=== PATIENT | female | born 1965 | race Caucasian/White ===

== ENCOUNTER 2017-07-15 10:49 | Emergency (ER) | payer OTHER, SELFPAY ==
[2017-07-15 10:50] VITALS: BP 167/101; PULSE 102; RESP 16; TEMP 36.7; O2SAT 99; BMI 39.5
--- NOTE | 2017-07-15 11:15 | EKG12_ITS ---
Test Reason : CP Blood Pressure : / mmHG Vent. Rate : 101 BPM Atrial Rate : 101 BPM P-R Int : 162 ms QRS Dur : 082 ms QT Int : 346 ms P-R-T Axes : 050 006 043 degrees QTc Int : 448 ms Sinus tachycardia Otherwise normal ECG Confirmed by SHERIE MCNAMARA ([id number]), food expeditor GIOVANNI KWAN ([id number]) on 07/19/2017 1:11:50 PM Referred By: KARLOS Confirmed By:SHERIE MCNAMARA
--- NOTE | 2017-07-15 11:18 | ED.DCSUM_ITS ---
- ER Visit Summary Date of Service: 07/15/17 Chief Complaint: Chest pain History of Present Illness: The patient is a 51 F who states that beginning last night she has had several intermittent episodes of chest tightness. She states it lasts seconds. She has no other associated symptoms. She has a history of hypertension and takes lisinopril for that. No personal history of hypercholesterolemia or diabetes. She is a non-smoker. There is no familial history of early cardiac disease. No PE risk factors and no familial history of thoracic aortic disease. Physical Examination: Afebrile 167/102 heart rate of 1 2 respirations are 16 pulse ox is 99% on room air Gen: Well-nourished well-developed obese Head: Normocephalic atraumatic Eyes: Perrl EOMI ENT: TMs clear no rhinorrhea moist mucous membranes Neck: Supple no lymphadenopathy no JVD nontender CVS: Regular rate rhythm no murmurs normal S1-S2 Respiratory: No distress clear to auscultation bilaterally chest nontender Abdomen: Soft nontender nondistended normal bowel sounds no masses Back: Nontender Extremity: Nontender no edema Skin: Normal color no rash Neuro: alert orientated ?3 CN II-XII intact normal strength sensation reflexes gait cerebellar Psych: Normal affect normal mood Test Results: There is tachycardia at a rate of 101. EDC is normal. BMP shows a glucose of 257. Troponin less than 0.02. Chest x-ray showed no acute disease. Emergency Department Course and Treatment: The patient's JEB score is 0 and her heart score is 2. Evaluation can be done as an outpatient based on his criteria. Patient was advised that her blood sugar was elevated and she will need further evaluation of that. She will be referred back to her primary care doctor. Impression: 1. Chest pain 2. Hyperglycemia This note was generated with [employer] dictation software. It may contain incorrect words, spelling, and punctuation that were not noted in review of the chart prior to signing ED Disposition - Plan for ED Patient: Disposition: Home or Assisted Living Chief Complaint: Chest Pain Instructions: ED Chest Pain Atypical Unkn Cause Referrals: Anand Rodgers [Primary Care Provider] - (Call today to arrange early follow-up) Additional Instructions: Blood sugar today was 257. You must follow-up with your primary care for further evaluation of this. Please also discuss your chest pain with them. Return if worsening.
--- NOTE | 2017-07-15 11:25 | RAD_ITS ---
STUDY: X-RAY CHEST REASON FOR EXAM: Female, 51 years old. Chest pain. TECHNIQUE: PA and lateral views of the chest. COMPARISON: None. FINDINGS: EKG electrodes are seen. The lungs are clear and expanded. There is no demonstrated pleural abnormality. Normal size heart. Normal mediastinum and darwin. Normal visualized pulmonary arteries. Normal visualized aortic arch and descending thoracic aorta. Normal visualized thoracic spine. Normal visualized ribs, clavicles, and shoulders. There is no demonstrated abnormality of the visualized soft tissue structures of the upper abdomen. RAD/Chest PA and Lateral IMPRESSION: Normal x-ray examination of the chest. Electronically Signed: Pako Ferro MD at 12:29 EST Tel [phone], Service support ,
[2017-07-15] MEDS: Aspirin 81 MG TAB.CHEW 324 MG PO (11:27)
[2017-07-15 11:29] VITALS: BP 159/87; PULSE 98; RESP 16; O2SAT 97
[2017-07-15 11:29] LABS: Absolute Lymphocyte Count 2.04 X10^3/ul (0.83-4.51); Absolute Neutrophil Count 5.2 X10^3/uL (2.0-7.7); Basophil# 0.02 X10^3/uL; Basophil% 0.2 % (0-1); Eosinophil# 0.32 X10^3/uL; Hematocrit 39.1 % (37-47); Hemoglobin 13.2 g/dl (12.0-15.0); Lymphocyte # 2.04 X10^3/ul (4.0); Lymphocyte % 25.2 % (19-41); Mean Corp Hgb Conc 33.8 g/gl (32-36); Mean Corpuscular Hgb 29.5 pg (27.0-32.0); Mean Corpuscular Volume 87.3 fL (81-99); Mean Platelet Vol. 8.4 fl (6.2-12.0); Monocyte# 0.49 X10^3/uL; Monocyte% 6.1 % (0-10); Neutrophil % 64.4 % (47-70); Platelet Count 325 K/mm3 (150-450); RBC Distribution Width CV 12.7 % (11.6-14.6); RBC Distribution Width SD 39.8 fl (35.1-43.9); Red Blood Count 4.48 M/mm3 (4.2-5.4); White Blood Count 8.1 K/mm3 (4.4-11.0)
[2017-07-15 11:41] LABS: Anion Gap 8 (5-15); BUN 12 mg/dL (7-18); BUN/Creat Ratio 13.5 RATIO (10-20); Calcium,Total 8.6 mg/dL (8.5-10.1); Chloride 101 mmol/L (98-107); Creatinine, Serum 0.89 mg/dL (0.55-1.02); EST Glomerular Filtration Rate 71 mL/min (>60); Est Glom Filt Rate - Afr Amer 86 mL/min (>60); Estimated Creatinine Clearance 58.48 ml/min; Glucose 257 mg/dL (74-106); Potassium 3.9 mmol/L (3.5-5.1); Sodium Level 138 mmol/L (136-145)
[2017-07-15 11:45] LABS: POSITIVE COUNT NO; POSITIVE DIFFERENTIAL NO; POSITIVE MORPHOLOGY NO
[2017-07-15 12:13] VITALS: BP 137/81; PULSE 65; RESP 16; O2SAT 100
[2017-07-15 12:17] VITALS: BP 137/81; PULSE 65; RESP 16; O2SAT 100
== END 2017-07-15 12:23 | disposition home or self-care (01) ==
PROVIDERS: Emergency Provider Emergency Medicine
DX: R07.9 Chest pain, unspecified (principal); R73.9 Hyperglycemia, unspecified; I10 Essential (primary) hypertension; Z79.899 Other long term (current) drug therapy; E66.9 Obesity, unspecified
CPT/HCPCS: 71046; 80048; 84484; 85025; 93005; 99285; A4216

== ENCOUNTER 2018-03-18 16:04 | Emergency (ER) | payer OTHER, SELFPAY ==
[2018-03-18 16:05] VITALS: BP 161/96; PULSE 125; RESP 17; TEMP 37.8; O2SAT 94; BMI 38.7
--- NOTE | 2018-03-18 16:21 | CT_ITS ---
STUDY: CT CHEST WITH CONTRAST REASON FOR EXAM: Female, 52 years old. Right axillary mass x2 days, history of lymphoma RADIATION DOSAGE (If Supplied By Facility): CTDIvol = ( 17.86 ) mGy, DLP = ( 873.63 ) mGycm TECHNIQUE: Transaxial imaging was performed following intravenous administration of 100 ml of Isovue 300 contrast material. Individualized dose optimization techniques were used for this CT. COMPARISON: None. FINDINGS: The lungs are normal. There is minimal pleural nodularity bilaterally. Normal heart and pericardium. Normal mediastinum. Normal hilar regions. Normal enhanced pulmonary arteries. Normal aorta arch and descending thoracic aorta. There is mild diffuse endplate spondylosis of the visualized thoracolumbar spine. There are multiple enlarged right axillary nodes measuring up to 2.9 x 2.2 cm. There is no significant abnormality of the visualized upper abdomen. CT/Chest WITH Contrast IMPRESSION: Right axillary adenopathy. There is minimal pleural nodularity bilaterally. Electronically Signed: Geo Boyle MD at 18:31 EDT , Service support ,
--- NOTE | 2018-03-18 16:27 | ED.DCSUM_ITS ---
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 She was seen by her automotive parts manager in follow-up on February 15 and had a normal exam. Patient noted a small abscess-like lesion to her right forearm a couple weeks ago. It has not greatly changed in size. She noted a painful lump to her right axilla over the past couple days it seems to be enlarging. Patient has not noted fever or chills. She states she has felt somewhat fatigued. Physical Examination: Blood pressure is 161/96, temperature 100.1, heart rate 125, respiratory rate 17, pulse ox 94% on room air. Patient sitting in a bedside chair reading a book. She is in no acute distress. Head neck examination is normal. Heart is slightly tachycardic and regular. Lung sounds are clear. Abdomen is soft and nontender. Skin examination was a small, 1 similar diameter cutaneous lesion on her right forearm. There is no fluctuance and no cellulitis. There is a large tender mass deep in the right axilla measuring approximately 6 cm in diameter without overlying skin changes. She has full range of motion of the right upper extremity with strong distal pulses. Test Results: CBC reveals a white count of 11.7 with unremarkable differential. Chemistry studies significant for glucose of 197 and a creatinine 1.35. CRP is elevated at 87.8. Sed rate is 26. CT the chest with IV contrast reveals right axillary adenopathy. There are multiple enlarged right axillary lymph nodes measuring up to 2.9 x 2.2 cm. Emergency Department Course and Treatment: Test results were discussed with the patient. I spoke with dermatology at . They asked that I take pictures of her lesions and email them. Patient did sign consent for this. I also asked the patient be started on antibiotics to cover for staph infection and they wish to see the patient in the office on Tuesday or Tuesday. Patient is to call on Tuesday morning to schedule a time for this. Patient is given initial dose of Bactrim and Keflex here with prescriptions for the same. Treatment Plan: [] Disposition: Discharge Impression: Right axillary adenopathy with history of cutaneous lymphoma. This note was generated with [employer] software. It may contain incorrect words, spelling, and punctuation that were not noted in review of the chart prior to signing ED Disposition - Plan for ED Patient: Disposition: Home or Assisted Living Chief Complaint: Other, Pain/Inj Prescriptions: Cephalexin [Keflex] 500 mg PO Q6 #40 capsule Smz/Tmp Ds [Bactrim Ds] 1 tablet PO BID #20 tablet Additional Instructions: Follow-up with Dr Estrella this week. Call on Tuesday to arrange an appointment for Tuesday or Tuesday.
[2018-03-18] MEDS: 0.9% Normal Saline 1,000 ML 150 ML IV (16:39)
[2018-03-18 16:48] LABS: Absolute Lymphocyte Count 3.27 X10^3/ul (0.83-4.51); Absolute Neutrophil Count 6.7 X10^3/uL (2.0-7.7); Basophil# 0.05 X10^3/uL; Basophil% 0.4 % (0-1); Eosinophil# 1.19 X10^3/uL; Eosinophils% 10.2 % (0-5); Hemoglobin 13.7 g/dl (12.0-15.0); Lymphocyte # 3.27 X10^3/ul (4.0); Lymphocyte % 27.9 % (19-41); Mean Corp Hgb Conc 32.6 g/gl (32-36); Mean Corpuscular Hgb 29.1 pg (27.0-32.0); Mean Corpuscular Volume 89.2 fL (81-99); Mean Platelet Vol. 8.9 fl (6.2-12.0); Monocyte# 0.53 X10^3/uL; Monocyte% 4.5 % (0-10); Neutrophil # 6.66 X10^3/uL (2.7-7.7); Neutrophil % 56.9 % (47-70); Platelet Count 200 K/mm3 (150-450); RBC Distribution Width CV 12.6 % (11.6-14.6); RBC Distribution Width SD 40.4 fl (35.1-43.9); Red Blood Count 4.71 M/mm3 (4.2-5.4); White Blood Count 11.7 K/mm3 (4.4-11.0)
[2018-03-18 16:49] LABS: POSITIVE COUNT NO; POSITIVE DIFFERENTIAL NO; POSITIVE MORPHOLOGY NO
[2018-03-18 17:03] LABS: Anion Gap 9 (5-15); BUN 15 mg/dL (7-18); BUN/Creat Ratio 11.1 RATIO (10-20); Calcium,Total 8.7 mg/dL (8.5-10.1); Chloride 100 mmol/L (98-107); Creatinine, Serum 1.35 mg/dL (0.55-1.02); EST Glomerular Filtration Rate 44 mL/min (>60); Est Glom Filt Rate - Afr Amer 53 mL/min (>60); Estimated Creatinine Clearance 38.12 ml/min; Glucose 197 mg/dL (74-106); Potassium 4.2 mmol/L (3.5-5.1); Sodium Level 137 mmol/L (136-145)
[2018-03-18 17:11] LABS: Erythrocyte Sedimentation Rate 26 mm/hr (0-30)
[2018-03-18 18:15] VITALS: BP 142/77; PULSE 108; RESP 16; O2SAT 100
--- NOTE | 2018-03-18 19:50 | ED.DEP ---
ED Disposition - Plan for ED Patient: Disposition: Home or Assisted Living Chief Complaint: Other, Pain/Inj Prescriptions: Cephalexin [Keflex] 500 mg PO Q6 #40 capsule Smz/Tmp Ds [Bactrim Ds] 1 tablet PO BID #20 tablet Additional Instructions: Follow-up with Dr Estrella this week. Call on Tuesday to arrange an appointment for Tuesday or Tuesday.
[2018-03-18] MEDS: Cephalexin 250 MG Capsule 500 MG PO (20:00)
[2018-03-18] MEDS: Smz/Tmp Ds Tablet 1 TABLET PO (20:00)
[2018-03-18 20:02] VITALS: BP 139/75; PULSE 107; RESP 16; O2SAT 95
== END 2018-03-18 20:03 | disposition home or self-care (01) ==
PROVIDERS: Emergency Provider Emergency Medicine
DX: R59.9 Enlarged lymph nodes, unspecified (principal); Z85.72 Personal history of non-Hodgkin lymphomas; Z92.3 Personal history of irradiation; I10 Essential (primary) hypertension
CPT/HCPCS: 71260; 80048; 85025; 85652; 86140; 96360; 96361; 99284; J7030; Q9967; A4216

== ENCOUNTER → 2018-04-29 10:41 | Outpatient (CLI) | payer OTHER, SELFPAY ==
[2018-05-05 04:54] LABS: Rapid Plasmin Reagin (RPR) NONREACTIVE (NONREACTIVE)
== END ==
DX: R21 Rash and other nonspecific skin eruption (principal)
CPT/HCPCS: 36415; 86592

== ENCOUNTER 2019-03-27 11:13 | Emergency (ER) | payer OTHER, SELFPAY ==
[2019-03-27 11:14] VITALS: BP 155/83; PULSE 108; RESP 18; TEMP 36.6; O2SAT 98; BMI 38.4
--- NOTE | 2019-03-27 11:39 | RAD_ITS ---
STUDY: X-RAY - RIGHT KNEE REASON FOR EXAM: Female, 53 years old. Fall, knee pain TECHNIQUE: 2 view(s) of the knee. COMPARISON: None. FINDINGS: Normal visualized distal femur. Normal visualized proximal tibia and fibula. Normal proximal tibiofibular articulation. Status post anterior cruciate ligament reconstruction. There is moderate degenerative arthrosis of the medial femorotibial compartment with moderate joint space narrowing. There is moderate degenerative arthrosis of the lateral femorotibial compartment with moderate joint space narrowing. There is moderate degenerative arthrosis of the patellofemoral articulation. The soft tissue structures are unremarkable. RAD/Knee 1 or 2 Views IMPRESSION: 1. No acute fracture or dislocation. 2. Status post anterior cruciate ligament reconstruction. 3. Moderate arthrosis. Electronically Signed: Alex Vasquez MD at 12:51 EST Tel , Service support ,
--- NOTE | 2019-03-27 11:40 | ED.DCSUM_ITS ---
History of Present Illness Chief Complaint: Lower Extremity Injury Informant: Patient Onset: Yesterday Mechanism/Context: Fall Quality of Pain: Dull, Aching Location: Right knee Current Severity: Mild Maximum Severity: Moderate Worsened by: Flexion and weightbearing Relieved by: Nothing Associated Symptoms: Inability to ambulate - Difficulty ambulating. Negative for: Parasthesias, Weakness, Loss of function, Loss of consciousness, Amnesia Narrative: She is a middle-age woman on a letter yesterday. The latter fell to the right. She states she landed on her right side. She states she felt her knee wobbled out of position. She has difficulty bearing weight. She had an ACL injury and repair 1993. She denies head trauma. She denies neck pain. She denies paresthesia, anesthesia motor is presently the time of the impact. She denied blood in her urine. She is on no anticoagulant. She states her knee feels full and there is fullness behind her knee. Tetanus Immunization: Unknown Prior similar symptoms: Yes Recent Illness/Hospitalization: No - Past Medical History (1) History of hypertension Status: Acute Past Medical History - Allergies and Home Meds Allergies/Adverse Reactions: Allergies Sulfa (Sulfonamide Antibiotics) Allergy (Verified 03/27/19 11:29) Lesly Primary Care Physician: Anand Rodgers [Primary Care Provider] - Surgical History: - - ACL repair 1993 Lives: Alone Smoking Status: Never smoker Alcohol: Rare Drugs: None Review of Systems Cardiovascular: Denies: Chest pain Respiratory: Denies: Dyspnea Gastrointestinal: Denies: Abdominal pain, Nausea, Vomiting Genitourinary: Denies: Hematuria Musculoskeletal: Reports: Swelling, Extremity Pain, - - Pain and swelling right knee. Denies: Myalgias, Arthralgias, Neck pain, Back pain Skin: Denies: Rash, Wounds Neurological: Denies: Headache, Weakness, Parasthesia, Numbness, -, - Hematologic: Denies: Easy bruising, Easy bleeding Physical Exam Vital Signs/Narrative: Vital Signs Temp Pulse Resp BP Pulse Ox 03/27/19 11:14 98 F 108 H 18 155/83 H 98 Inital Vital Signs reviewed: Yes General: Well nourished, Well developed, Obese Head: Normocephalic, Atraumatic Eyes: Perrl, EOMI. Negative for: Pale conjunctiva, Scleral icterus Cardiovascular: Regular rate, Regular rhythm, No murmurs Respiratory: No distress Extremeties: Patient is able to extend to approximately 170 degrees and flex only to 150 degrees. She complains of pain. The right knee is sniffily swollen. There is a well-healed midline incision noted. There is a significant effusion of the right knee. There is no lacks with varus valgus stress testing. Unable to perform Symone's test or modified Mehdi because of limited range of motion secondary to pain. There is fullness in the popliteal fossa. DP and PT pulses are palpable. There is no pain the patient over the lateral or medial malleolus. There is no pain with logrolling in the hip region. The pelvis is stable and nontender. Skin: Normal color, No rash, No Trauma. Negative for: Cyanosis, Diaphoresis, Jaundice Diagnostic/Tx/Re-eval Chest X-Ray - ED: Read by ED Physician, - - 3 views of the right knee were obtained. There is significant degenerative changes. There is evidence of repair of prior ACL injury. There is an effusion. There is no fracture noted. 03/27/19 11:39 Knee 1 or 2 Views [RAD] Stat - Medical Decision Making Tray was obtained to evaluate for fracture versus ligamentous injury. Patient was offered pain medicine, which she declined. ED Disposition - Plan for ED Patient: Disposition: Home or Assisted Living Diagnosis: Traumatic joint effusion Instructions: KNEE PAIN, Meniscus Injury (Possible) Prescriptions: Oxycodone HCl/Acetaminophen [Percocet 5/325] 1 tablet PO Q6H PRN PRN 5 Days #20 tablet PRN Reason: Knee pain Transmission Status: Sent to [facility] Referrals: Anand Rodgers [Primary Care Provider] - 3-5 Days Additional Instructions: Your prescription was electronically transmitted to [facility]
[2019-03-27 12:41] VITALS: PULSE 96; RESP 16; O2SAT 100
--- NOTE | 2019-03-27 12:41 | ED.RN ---
REVIEWED D/C INSTRUCTIONS, FOLLOW UP CARE, PRESCRIPTION, AND S/S THAT WOULD WARRANT A RETURN TO THE ED WITH PT. PT VERBALIZED AN UNDERSTANDING AND DENIES FURTHER QUESTIONS FOR THIS RN. PT SKIN WARM AND DRY, RESP EVEN AND UNLABORED, PT A&O X 3, NO DISTRESS NOTED. PT AMBULATED OUT OF ED USING PERSONAL CRUTCHES, GAIT STEADY.
== END 2019-03-27 12:42 | disposition home or self-care (01) ==
PROVIDERS: Emergency Provider Emergency Medicine
DX: M25.461 Effusion, right knee (principal); I10 Essential (primary) hypertension; M17.11 Unilateral primary osteoarthritis, right knee; Z88.2 Allergy status to sulfonamides
CPT/HCPCS: 73560; 99282

== ENCOUNTER → 2019-06-04 11:48 | Outpatient (CLI) | payer OTHER, SELFPAY ==
[2019-05-28 09:50] VITALS: BMI 38.4
[2019-06-04 12:42] LABS: Absolute Lymphocyte Count 2.82 X10^3/uL (0.83-4.51); Absolute Neutrophil Count 9.2 X10^3/uL (2.0-7.7); Basophil# 0.04 X10^3/uL; Basophil% 0.3 % (0-1); Eosinophil# 0.29 X10^3/uL; Eosinophils% 2.2 % (0-5); Hematocrit 42.8 % (37-47); Hemoglobin 14.1 g/dL (12.0-15.0); Lymphocyte # 2.82 X10^3/ul (4.0); Lymphocyte % 21.5 % (19-41); Mean Corp Hgb Conc 32.9 g/dL (32-36); Mean Corpuscular Hgb 28.7 pg (27.0-32.0); Mean Platelet Vol. 8.6 fl (6.2-12.0); Monocyte% 5.3 % (0-10); NRBC Flagged by Analyzer 0 % (0-5); Neutrophil # 9.19 X10^3/uL (2.7-7.7); Neutrophil % 70.3 % (47-70); Platelet Count 334 K/mm3 (150-450); RBC Distribution Width CV 12.3 % (11.6-14.6); RBC Distribution Width SD 39.1 fl (35.1-43.9); Red Blood Count 4.92 M/mm3 (4.2-5.4); White Blood Count 13.1 K/mm3 (4.4-11.0)
[2019-06-04 13:05] LABS: ALB/GLOB Ratio 0.9 RATIO (0.9-2.4); AST(SGOT) 11 U/L (15-37); Alanine Aminotransfer ALT/SGPT 23 U/L (13-56); Albumin, Serum 3.8 g/dL (3.2-5.0); Alkaline Phosphatase 94 U/L (45-117); Anion Gap 4 (5-15); BUN 14 mg/dL (7-18); BUN/Creat Ratio 15.7 RATIO (10-20); Chloride 105 mmol/L (98-107); Cholesterol 236 mg/dL (200); Creatinine, Serum 0.89 mg/dL (0.55-1.02); EST Glomerular Filtration Rate 70 mL/min (>60); Est Glom Filt Rate - Afr Amer 85 mL/min (>60); Globulin 4.3 g/dL (2.2-4.2); Glucose 155 mg/dL (74-106); High Density Lipoprotein 62 mg/dL; Potassium 4.1 mmol/L (3.5-5.1); Protein, Total 8.1 g/dL (6.4-8.2); Sodium Level 138 mmol/L (136-145); Triglycerides 243 mg/dL; Very Low Density Lipoprotein 49 mg/dL (5-40)
--- NOTE | 2019-06-04 13:08 | BI_ITS ---
MAMMOGRAPHY - BILATERAL SCREENING REASON FOR EXAM: Female, 53 years old. Routine annual screening examination. PERTINENT HISTORY: Grandmother with breast cancer. TECHNIQUE: Digital bilateral breast delmy (3D mammographic acquisition) in the CC and MLO projections. 2-D mediolateral oblique (MLO) and craniocaudad (CC) views of both breasts were obtained. CAD: Full Field Digital Mammography with Computer Added Detection was performed. COMPARISON: Comparison is made with prior abdomen examination is January 24, 2013. FINDINGS: Breast Composition: There are scattered areas of fibroglandular density. There are no dominant masses or suspicious calcifications. No other significant abnormalities are identified. There has been no significant change since the prior study. BI/SCREEN MAMM (CAD) W/DELMY BILAT IMPRESSION: Stable bilateral screening mammogram. Yearly follow-up mammogram recommended. (A) ASSESSMENT CATEGORY: BIRADS Category 1: Negative. A letter regarding these results will be sent to the patient by the facility within 30 days. Approximately 10% of breast cancers are not detected by mammography. A normal mammogram should not delay biopsy of a clinically suspicious abnormality. [id number] Electronically Signed: Pako Ferro, at 8:24 EST , Service support ,
[2019-06-04 13:39] LABS: Color, Urine Yellow (Yellow); Glucose, Dipstick Normal (Normal); Ketone-Dipstick Negative (Negative); Leukocyte Esterase-Dipstick 25 /ul (Negative); Nitrite-Dipstick Negative (Negative); Occult Blood-Urine Negative /ul (Negative); Protein-Dipstick Negative (Negative); Urine Bilirubin Dipstick Negative (Negative); Urine Clarity Clear (Clear); Urine Urobilinogen Normal (Normal)
== END ==
PROVIDERS: Referring Provider Family Medicine; Visit Provider Family Medicine
DX: Z12.31 Encounter for screening mammogram for malignant neoplasm of breast (principal); Z00.00 Encounter for general adult medical examination without abnormal findings; K51.90 Ulcerative colitis, unspecified, without complications; I10 Essential (primary) hypertension
CPT/HCPCS: 36415; 77063; 77067; 80053; 80061; 81002; 85025

== ENCOUNTER → 2019-09-15 08:48 | Outpatient (CLI) | payer OTHER, SELFPAY ==
[2019-06-29 07:58] VITALS: BMI 38.4
[2019-09-15 09:53] LABS: AST(SGOT) 14 U/L (15-37); Alanine Aminotransfer ALT/SGPT 22 U/L (13-56); Albumin, Serum 3.7 g/dL (3.2-5.0); Alkaline Phosphatase 76 U/L (45-117); Bilirubin, Direct 0.08 mg/dL (0.00-0.30); Cholesterol 205 mg/dL (200); Globulin 4.1 g/dL (2.2-4.2); High Density Lipoprotein 54 mg/dL; Protein, Total 7.8 g/dL (6.4-8.2); Triglycerides 193 mg/dL; Very Low Density Lipoprotein 39 mg/dL (5-40)
== END ==
DX: E78.5 Hyperlipidemia, unspecified (principal)
CPT/HCPCS: 36415; 80061; 80076

== ENCOUNTER → 2019-09-24 10:33 | Outpatient (CLI) | payer OTHER, SELFPAY ==
[2019-06-29 07:58] VITALS: BMI 38.4
[2019-09-24 12:29] LABS: Hemoglobin A1c 7.3 % (4.2-6.3)
== END ==
DX: R73.9 Hyperglycemia, unspecified (principal)
CPT/HCPCS: 36415; 83036

== ENCOUNTER 2019-10-04 09:12 | Outpatient (RCR) | payer OTHER, SELFPAY ==
[2019-06-29 07:58] VITALS: BMI 38.4
--- NOTE | 2019-10-05 10:52 | HP.PTEVAL ---
Patient's Visit Information ROSI SCHMITT is a 54 year old F referred to Physical Therapy by Dr. Marcus Ford DO with a diagnosis of R knee OA. Date of Evaluation: 10/04/19 Physical Therapist: Caio Becerra DPT - Visit Plan Frequency: 2x /Week Duration: 4 Weeks Plan: 1) start with ROM, focus on TKE and progressing flexion as able. I recommend using a bike, heel slides, prone stretch, heel prop etc.. 2) Initiate quad, HS, glute strengthening. Avoid squating (especially deep squating and step ups). - Subjective Pt. is here today for her initial evaluation with diagnosis of R knee OA. Pt. reports having increased R knee pain for the last few years, but has become worse more recently. 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 Pt. has been just pushing through it, but recently her knee is really impacting her ability to complete her job duties. She would typically have to run to a code, but reports now her knee is not allowing her to do so. Pt. denies N/T. PHM- R ACR repair ~ 25 years ago. Pt. is awaiting approval for her R TKA, but doctor recommended she work on her ROM due to her R knee stiffness. Pt. reports never regaining perfect ROM after her last surgery. Pt. was told that she needed to get her A1C down prior to surgery and she is taking some new medication which has been lowering this. Pt. is hopeful to increase her ROM and increase her strength allowing for a better outcome with her R TKA. - Pain R knee Pain Intensity (Out of 10): 2 Pain Intensity Range: 1, 8 - Objective POSTURE: Pt. has increased LLE weigt shift, lacks TKE on RLE in stance. Pt. has difficulty correcting. PALPATION: Pt. has tenderness at medial posterior aspect of R knee. Pt. has mild edema, but non pitting. NEURO: Pt. has normal sensation throughout BLEs. Pt. has normal DTR of BLEs. ROM: L knee 0-0-133deg. R knee 0-10-87deg. Pt. has pain and stiffness limiting her ROM in both directions. Pt. was able to achieve 0-5-93deg with PROM after some stretching/ROM. MMT: Pt. has good muscle strength in bilateral LEs. Pt. has good quad activation. RLE- ankle 5/5 throughout; knee- ext 5-/5, flexion 4+/5; hip- flexion 4+/5, abd 4+/5, ext 4+/5. GAIT: Pt. ambulates with antalgic pattern. Pt. lacks TKE during stance phase and of RLE and limited flexion during swing phase. STAIRS: Pt. was able to negotiate stairs better than I exepcted, especially with ascending. She does have difficulty with descending with increased R hip hike to make up for her lack of R knee flexion during this phase. - Goals Goal 1:: LTG: Pt. to be I with HEP for ROM and initiation of strengthening. Goal Time Frame: 4-6 Weeks Goal 2:: LTG: Pt. to have increased R knee ROM to 0-0-105deg allowing for improved outcomes with TKA. Goal Time Frame: 4-6 Weeks Goal 3:: LTG: Pt. to sleep throughout the night with decreased symptoms to 0-2/10 pain. Goal Time Frame: 4-6 Weeks Goal 4:: LTG: Pt. to have increased RLE strength by 1/2 grade of all effected musculature. Goal Time Frame: 4-6 Weeks - Rehabilitation Potential Physical Therapy Diagnosis: Pt. has signs and symptoms consistent with R knee OA. Pt. has marked hypomobility into both flexion and extension. Pt. has some light weakness, but her bigges issue at this point in ther time is her lack of mobility and increased pain. Pt. would benefit from PT to increase her ROM and educate in some light stability exercises that will progress over into post surgery rehab as well. Rehabilitation Potential: Good - Anticipated Interventions Patient/Client Instruction: Educate patient on: Condition, Plan of Care, Risk Factors, Benefits of Fitness Program For the Purpose of:: To improve decision making, To facilitate caregiver knowledge, To improve self management, To prevent re-injury, To improve ability to perform tasks related to life management, To improve tolerance to ADL's Therapeutic Exercise to Include: Strength training, Power training, Endurance training, Flexibilty training, Gait and locomotor training, Passive ROM, Active ROM For the Purpose of:: To decrease pain, To decrease swelling/inflammation, To increase ROM, To improve nutrient delivery to tissue, To increase oxygenation perfusion, To improve muscle performance and motor function, To improve ability to perform ADL's, To improve health of tissue, To decrease soft tissue restriction, To increase flexibility/ROM Thank you for the opportunity to evaluate your patient. For Medicare and Medicare HMO plans, please review the plan of care and approve it. It will need to be FAXED BACK to us at [phone] for Medicare purposes. For Medicare only, by signing this I certify the plan of care. Please let me know if there are questions or concerns regarding this plan of care. Physician Signature: Date:
--- NOTE | 2019-11-01 10:45 | HP.PT.NRP ---
ROSI SCHMITT was seen in my office for initial evaluation on 10/04/19. The following Plan of Care was established for this patient: Initial Frequency: 2x /Week Initial Duration: 4 Weeks Patient/Client Instruction: Educate patient on: Condition, Plan of Care, Risk Factors, Benefits of Fitness Program For the Purpose of:: To improve decision making, To facilitate caregiver knowledge, To improve self management, To prevent re-injury, To improve ability to perform tasks related to life management, To improve tolerance to ADL's Therapeutic Exercise to Include: Strength training, Power training, Endurance training, Flexibilty training, Gait and locomotor training, Passive ROM, Active ROM For the Purpose of:: To decrease pain, To decrease swelling/inflammation, To increase ROM, To improve nutrient delivery to tissue, To increase oxygenation perfusion, To improve muscle performance and motor function, To improve ability to perform ADL's, To improve health of tissue, To decrease soft tissue restriction, To increase flexibility/ROM This patient was last seen in our office 10/04/19. Pertinent comments regarding their Physical therapy will appear below: Pt. was seen for pre hab exercises prior to TKA. Pt. is scheduled to have her surgery and dmitri be DC from this case at this point intime. At this point I will be discontinuing this patient from physical therapy. I would be happy to see this patient again in the future if found appropriate by the physician. Thank you! Caio Becerra DPT
== END 2019-10-04 19:00 | disposition home or self-care (01) ==
LOC: PT 09:12
PROVIDERS: Referring Provider Orthopaedic Surgery; Visit Provider Orthopaedic Surgery
DX: M17.11 Unilateral primary osteoarthritis, right knee (principal)
CPT/HCPCS: 97110; 97161

== ENCOUNTER → 2019-10-16 07:26 | Outpatient (CLI) | payer OTHER, SELFPAY ==
[2019-10-08 10:03] VITALS: BMI 38.4
--- NOTE | 2019-10-16 07:27 | CT_ITS ---
STUDY: CT SCAN LOWER EXTREMITY RIGHT REASON FOR EXAM: Female, 54 years old. RIGHT KNEE PAIN. PRIOR ACL REPAIR IN . ROBBI PROTOCOL RADIATION DOSAGE (If Supplied By Facility): CTDIvol = ( 21.84 ) mGy, DLP = ( 1139.49 ) mGycm. Individualized dose optimization techniques were used for this CT.? TECHNIQUE: Multiple axial tomographic images of the right hip, right knee and right ankle were obtained for the ROBBI protocol. COMPARISON: None. FINDINGS: Is evidence of a small superior acetabular spur. Mild to moderate degree of the joint space narrowing more prominent along the inferior posterior aspect of the hip joint. There is evidence of prior anterior cruciate ligament repair with a tunneling of the distal femur and proximal tibia. Degenerative spurs are seen along the medial and lateral compartments of the knee joint. Mild degree of joint space narrowing involving the medial and lateral compartments. Marked degree of osteoarthritis involving the patellofemoral joint with degenerative spur formation. Imaging of the ankle joint was obtained as well. There is good alignment. The ankle mortise is intact. CT/Extremity Lower without Contra IMPRESSION: Degenerative changes of the knee joint as described. Prior anterior cruciate ligament repair. Electronically Signed: Pako Ferro, at 15:32 EDT , Service support ,
== END ==
PROVIDERS: Referring Provider Orthopaedic Surgery; Visit Provider Orthopaedic Surgery
DX: M17.11 Unilateral primary osteoarthritis, right knee (principal)
CPT/HCPCS: 36415; 73700; 80048; 85025; 85610; 85730; 86850; 86900; 86901; 87081; 93005

== ENCOUNTER → 2019-12-12 09:49 | Outpatient (CLI) | payer OTHER, SELFPAY ==
[2019-10-08 10:03] VITALS: BMI 38.4
--- NOTE | 2019-10-16 07:45 | EKG12_ITS ---
Test Reason : PRE OP Blood Pressure : / mmHG Vent. Rate : 070 BPM Atrial Rate : 070 BPM P-R Int : 152 ms QRS Dur : 084 ms QT Int : 396 ms P-R-T Axes : 025 005 011 degrees QTc Int : 427 ms Normal sinus rhythm Normal ECG Confirmed by SEAN BOONE, GONZALES ([id number]), news video editor GIOVANNI KWAN ([id number]) on 10/18/2019 2:41:08 PM Referred By: Marcus Ford Confirmed By:GONZALES ESTRADA MD
[2019-10-16 09:09] LABS: Absolute Lymphocyte Count 2.26 X10^3/uL (0.83-4.51); Absolute Neutrophil Count 4.5 X10^3/uL (2.0-7.7); Basophil# 0.05 X10^3/uL; Basophil% 0.7 % (0-1); Eosinophil# 0.42 X10^3/uL; Eosinophils% 5.5 % (0-5); Hematocrit 38.3 % (37-47); Hemoglobin 12.5 g/dL (12.0-15.0); Lymphocyte # 2.26 X10^3/ul (4.0); Lymphocyte % 29.4 % (19-41); Mean Corp Hgb Conc 32.6 g/dL (32-36); Mean Corpuscular Volume 91.8 fL (81-99); Mean Platelet Vol. 8.7 fl (6.2-12.0); Monocyte# 0.45 X10^3/uL; Monocyte% 5.9 % (0-10); NRBC Flagged by Analyzer 0 % (0-5); Neutrophil # 4.48 X10^3/uL (2.7-7.7); Neutrophil % 58.2 % (47-70); Platelet Count 318 K/mm3 (150-450); RBC Distribution Width CV 12.6 % (11.6-14.6); RBC Distribution Width SD 42.5 fl (35.1-43.9); Red Blood Count 4.17 M/mm3 (4.2-5.4); White Blood Count 7.7 K/mm3 (4.4-11.0)
[2019-10-16 09:46] LABS: Anion Gap 7 (5-15); BUN 20 mg/dL (7-18); BUN/Creat Ratio 23.3 RATIO (10-20); Calcium,Total 8.6 mg/dL (8.5-10.1); Chloride 103 mmol/L (98-107); Creatinine, Serum 0.86 mg/dL (0.55-1.02); EST Glomerular Filtration Rate 73 mL/min (>60); Est Glom Filt Rate - Afr Amer 88 mL/min (>60); Glucose 107 mg/dL (74-106); Potassium 4.4 mmol/L (3.5-5.1); Sodium Level 140 mmol/L (136-145)
[2019-10-16 10:12] LABS: Prothrombin Time (Protime)PT. 12.8 SECONDS (11.7-14.9)
[2019-10-16 10:13] LABS: Partial Thromboplast Time 31.6 Seconds (24.1-36.2)
[2019-10-29 13:39] LABS: Probe Check N; Specimen Processing Control N
[2019-10-30] VITALS (10 sets, daily range): BP systolic 81–132; BP diastolic 54–83; PULSE 64–103; RESP 16; TEMP 36.1–36.7; O2SAT 97–100; BMI 36.1
[2019-10-30 06:16] LABS: Bedside Glucose 102 mg/dL (70-110)
[2019-10-30] MEDS: Gabapentin 600 MG Tablet PO (06:23)
[2019-10-30] MEDS: Acetaminophen 500 MG Tablet 1000 MG PO ×2 (06:23→13:48)
[2019-10-30 06:33] LABS: Magnesium 2.1 mg/dL (1.6-2.6)
[2019-10-30] MEDS: Lactated Ringers 1,000 ML 100 ML IV (06:34)
[2019-10-30] MEDS: Scopolamine 1mg/72hr Patch 1 PATCH TRANSDERM. (06:36)
[2019-10-30] MEDS: Cefazolin 2 GM in 0.9% Normal Saline 100 ML IV (07:27)
--- NOTE | 2019-10-30 07:38 | HP.PCM_ITS ---
History and Physical Date of Admission: 10/30/19 Intake Vital Signs 10/08/19 BMI 38.4 Intake Visit Reasons: right knee Is patient in pain?: Yes Pain scale (1-10): 3 Allergies Sulfa (Sulfonamide Antibiotics) Allergy (Verified 03/27/19 11:29) Hives Medications Lisinopril [Prinivil] 10 mg PO DAILY 07/15/17 [History Confirmed 10/08/19] cholecalciferol (vitamin D3) 25 mcg (1,000 unit) capsule 1,000 unit PO DAILY 04/02/19 [History Confirmed 10/08/19] etodolac 500 mg tablet 500 mg PO BID PRN #60 tab 04/02/19 [Rx Confirmed 04/02/19] magnesium 30 mg tablet 30 mg PO DAILY 04/02/19 [History Confirmed 10/08/19] omega-3 fatty acids 1,000 mg capsule 1,000 mg PO DAILY 04/02/19 [History Confirmed 10/08/19] etodolac 300 mg capsule 300 mg PO BID PRN #60 cap 06/29/19 [Rx Confirmed 10/08/19] metformin 500 mg tablet,extended release 24 hr mg PO 06/29/19 [History Confirmed 10/08/19] pioglitazone 15 mg tablet 15 mg PO DAILY 10/08/19 [History Confirmed 10/08/19] [facility] Medical History (Updated 04/02/19 @ 09:29 by Maricarmen Fam) HTN (hypertension) (Chronic) Social History (Updated 10/08/19 @ 11:[address] Marcus Ford DO) Smoking Status: Never smoker HPI right knee: Details: Parts of this documentation were recorded by a scribe, this documentation accurately reflects the service provided and the decisions made by me, Dr. Marcus Ford DO 10/08/19 [id number]. 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. She complains of all over knee pain that is a constant ache. She has been able to get her A1C down to 7.3 and is here to discuss a TKA but her insurance has denied her preop planning CT scan. She states that stairs are increasing difficult, descending is worse. She has clicking and popping and sensation of instability. Denies numbness, tingling or other associated symptoms. Denies any swelling. She is taking Etodolac and it is helpful. ROS Musc Reports as per HPI, Reports joint pain, Reports muscle weakness, Reports stiffness Skin/Breast Reports as per HPI Neuro Yes as per HPI Ortho Exam Right Knee Skin/Wound: Yes CDI Knee ROM: Yes ROM-Extension -20 to 0, No ROM-Flexion 0-140 (95) Examination: Yes Pain with flexion KNEE: Right Knee Skin/Wound: No erythema, No ecchymosis, No swelling Homans Sign: No Knee ROM: Yes ROM-Extension -20 to 0, No ROM-Flexion 0-140 (60 ) Examination: Yes Med jt line tenderness, No Lat jt line tenderness Stability: NML: Anterior Drawer, NML: Posterior Drawer, NML: Valgus 30, NML: Varus 30 Apprehension with Lateral Translation: No Patella Grind: Yes Supplemental Info 03/27/2019 x-ray right knee: Status post ACL reconstruction with interference screw in femur and 2 bone shanice in tibia moderate to severe arthritic change throughout the knee tricompartmentally no fracture Assessment & Plan Problems 1. Primary osteoarthritis of right knee M17.11 Plan Explained that we have a peer to peer scheduled for tuesday, if the CT is still denied we will proceed with traditional non robotic assisted total knee replacement. Will refill etodolac today but she will need to stop for 7 days prior to surgery, can resume post surgery after the anticoagulant is complete. Explained the importance of controlling her blood sugar prior to and post op. Instructed to bring her walker to the hospital with her day of surgery. Risks, benefits and alternatives of surgery reviewed including but not limited to bleeding, infection, nerve, artery and/or tissue damage, fracture, VTE, m echanical feel of the knee, continued pain, stiffness and expected post- operative course. Once again reviewed risk of COVID-19 exposureAnd potential consequences of respiratory failure ventilation with respirator and . Patient does wish to assume these risk due to her progressing ongoing symptomsThat are affecting her quality of life Follow up postop or sooner if pain, swelling, numbness or associated symptoms, or concerns develop. All questions answered. Patient in agreement of plan. Coding Level of Care Code Off vis,est,level 3 Diagnoses Primary osteoarthritis of right knee M17.11 ??Osteoarthritis type: primary I have re-examined the patient. There are no clinical changes since date of exam Procedure Criteria Procedure Type: Elective Procedure Essential: No Criteria Statement: [In addition to standard risk risk of COVID-19 exposure and potential consequences including respiratory failure ventilation and patient wishes to assume this risk secondary to ongoing progressive worsening symptoms that are limiting activities of daily living.] Risk to Patient if Procedure Delayed: Presence of severe symptoms causing an inability to perform ADL's COVID Risk Discussion: The surgeon/proceduralist and patient have discussed in detail the risk of exposure to and/or potential harm posed by the COVID-19 virus with having a surgery/procedure at this time versus the risk of delaying the surgery/procedure. It is not possible to know either the risk of delaying the surgery or procedure or chance of getting an infection with perfect accuracy, but a joint decision was made between the patient and the surgeon/proceduralist to proceed at this time with the scheduled surgery/procedure as indicated on the consent form.
[2019-10-30] MEDS: 0.9% Normal Saline (Pres. free 10 ML Vial (09:45)
[2019-10-30] MEDS: Epinephrine (1 mg/ml) 1 MG/ML VIAL (09:45)
[2019-10-30] MEDS: Bupivacaine 0.5% PF 10 ML VIAL (09:45)
[2019-10-30] MEDS: Betamethasone/Betamethasone 30 MG/5 ML Vial (09:45)
--- NOTE | 2019-10-30 10:24 | RAD_ITS ---
STUDY: X-RAY - RIGHT KNEE REASON FOR EXAM: Female, 54 years old. Post op total knee. TECHNIQUE: AP and lateral view(s) of the knee. COMPARISON: Comparison is made with prior study dated March 27, 2019. FINDINGS: Normal visualized distal femur. Normal visualized proximal tibia and fibula. Normal proximal tibiofibular articulation. The patient is status post total knee replacement. There is good alignment. Postoperative soft tissue changes. RAD/Knee 1 or 2 Views IMPRESSION: Status post total knee replacement. There is good alignment. Postoperative soft tissue changes Electronically Signed: Pako Ferro, at 11:23 EDT , Service support ,
--- NOTE | 2019-10-30 10:31 | PCM.DC.ORTHO ---
Discharge Diet: Carb Control Diet Weight Bearing Status: Weight bearing as tolerated Keep extremity elevated above heart level: Operative Extremity Call your doctor if you observe: Shortness of breath, Chest pain Additional Instructions: Ice and elevate one week while not ambulating. Ambulation is encouraged. Weightbearing as tolerated. Use assistive devise for stability. Encourage FULL knee extension and flexion 1 time EVERY time you get up and down and MULTIPLE times per day. No showering 72 hours after surgery. Begin showering postop day #3. Remove the dressing prior to shower and gently wash with warm water and antibacterial soap then pat dry and place abdominal pad (or plain gauze) and DELMAR hose over top. This is to be done daily. Do not submerge for 3 weeks. If not showering daily after the initial 72 hours then you must clean incision and change dressing daily. Do not allow animals near the incision area. Keep clean. Follow anticoagulation recommendations as prescribed. Do not take any NSAIDs while on blood thinner. Start physical therapy. If you are not currently scheduled for physical therapy or you are unsure of appointment time please call office [facility] to arrange. Call Dr. Ford with any concerns. Allergies/Adverse Reactions: Allergies Sulfa (Sulfonamide Antibiotics) Allergy (Verified 10/30/19 06:02) Hives Medications to take at Discharge Lisinopril [Prinivil] 10 mg PO DAILY 07/15/17 cholecalciferol (vitamin D3) 25 mcg (1,000 unit) capsule 1,000 unit PO DAILY 04/02/19 magnesium 30 mg tablet 30 mg PO DAILY 04/02/19 omega-3 fatty acids 1,000 mg capsule 1,000 mg PO DAILY 04/02/19 metformin 500 mg tablet,extended release 24 hr 1,000 mg PO BID 06/29/19 etodolac 500 mg tablet 500 mg PO ONCE #30 tab 10/08/19 pioglitazone 15 mg tablet 15 mg PO DAILY 10/08/19 Multivitamin [Multiple Vitamins] 1 ea PO DAILY 10/11/19 Acetaminophen [Tylenol Extra Strength] 1,000 mg PO Q6H PRN #100 tab 10/30/19 Apixaban [Eliquis] 2.5 mg PO BID #30 tab 10/30/19 Cephalexin [Keflex] 1,000 mg PO Q8 #4 cap 10/30/19 Ondansetron HCl [Zofran] 4 mg PO Q6H PRN PRN 5 Days #20 tab 10/30/19 Oxycodone [Oxyir] 5 mg PO Q4H PRN PRN #60 tablet 10/30/19 The following prescriptions were given: Apixaban [Eliquis] 2.5 mg PO BID #30 tab Transmission Status: Pending to [facility] #30 Cephalexin [Keflex] 1,000 mg PO Q8 #4 cap Transmission Status: Pending to [facility] #30 Oxycodone [Oxyir] 5 mg PO Q4H PRN PRN #60 tablet PRN Reason: Pain Score 6-10/10 Transmission Status: Sent to [facility] #30 Acetaminophen [Tylenol Extra Strength] 1,000 mg PO Q6H PRN #100 tab Transmission Status: Pending to [facility] #30 Ondansetron HCl [Zofran] 4 mg PO Q6H PRN PRN 5 Days #20 tab PRN Reason: Nausea Transmission Status: Pending to [facility] #30 Orders to be completed after discharge: CORONAVIRUS 19, JACQUES Time Frame: 10/22/19, Facility: [facility], Location: Laboratory Primary Care Physician: Anand Rodgers [Primary Care Provider] - Test Results: Test results from this visit will be discussed in further detail at your follow-up appointment, if applicable. Please Follow Up With: Marcus Ford DO - 2 weeks
--- NOTE | 2019-10-30 10:33 | PCM.OPRPT ---
Report of Operation Date of Procedure: 10/30/19 Description of Surgical Findings:: Preoperative diagnosis: Right knee DJD Postoperative diagnosis: Same Procedure: Right total knee arthroplasty CT guided Robotic Assisted Implant: Ros triathlon press fit femoral component size 4, press-fit tibial baseplate size 4, press fit asymmetric patella size 35, polyethylene X3 size 12 CS Anesthesia: Spinal with adductor canal block Tourniquet time: 32 minutes at 300 mmHg Complications: None Condition: Stable to PACU Estimated blood loss: 200 cc Indication for procedure: This is a 54-year-old female with long standing degenerative joint disease of the knee who has failed conservative treatment and wished to proceed with elective total knee arthroplasty. Who had prior ACL reconstruction with interference screw and femur and bone shanice and tibia. We did discuss removal of the bone shanice would require additional incisional length and time to surgery. In addition patient had about a 15 degree flexion contracture and only about 75 degrees of knee flexion we did discuss that this increases her risk for postoperative stiffness. risk benefits and alternatives were reviewed including; risk of bleeding, infection, nerve artery and tissue damage, continued pain, postoperative stiffness, venous thromboembolism, need for postoperative rehabilitation, mechanical feel to the knee, and expected postoperative course. The operative CT and templating was performed with component sizing Procedure: The patient was met in the preoperative holding area. The operative extremity was identified by both patient and physician and was marked. Patient was met by anesthesia. An adductor canal block was placed by anesthesia postoperatively the patient was brought back to the operating room on a wheeled cart and transferred to the operating table in the supine position. Anesthesia was started. A well-padded tourniquet was placed on the operative extremity. The patient was prepped and draped in the usual sterile fashion. A timeout was called to ensure the proper patient procedure and extremity were being contemplated. An Esmarch was used to exsanguinate the extremity. The tourniquet was inflated. A 10 blade scalpel was used to make a midline incision down through the skin and subcutaneous tissue the incision was continued from her prior open ACL reconstruction full-thickness flaps were elevated the bone shanice were immediately visualized they were removed with a vice physical therapy assistant instructor backslash device with ease. Skin retractors placed. Bovie was used to perform meticulous hemostasis. full-thickness flaps were elevated medial and lateral along the joint capsule. A deep blade scalpel was used to perform a medial parapatellar arthrotomy. The knee was brought to full extension. A Bovie was used to release the soft tissues off the most proximal aspect of the medial tibial plateau a three-quarter inch curved osteotome was also used for this process. The infrapatellar fat pad was excised. The fat pad was excised partially anterior lateral portion the anterior medial was elevated from the femur. At this point our intra-articular femoral array was placed of a 45 degree angle proximal and posterior to the medial epicondyle. Our tibial array was placed greater than 1 hands breath below the incision at a 20 degree angle stab incisions were used for this case were attached and checked with the robotic software. Tourniquet was let down. At this point registration cancino were taken throughout the knee as well as checkpoints placed in the femur and tibia once the knee was registered then tensioned the medial and lateral ligaments in extension and 90 degrees of flexion. We then used these numbers to adjust our components within parameters to balance the knee in both flexion and extension once this was done on our monitor we then proceeded with using the robotic arm to make our tibial plateau cut and anterior posterior and chamfer cuts on the femur we then trialed. Of note there was a very large posterior femoral osteophytes which when removed increased are extension space which required the use of a 12 mm poly-we then cut 2 more degrees of slope in her tibia and achieved the desired plan with a well-balanced knee. Lug holes were drilled in the femur the tibia preparation was completed with a fin punch and the patella was prepared by first using a caliper to ensure sufficient bone stock and a patellar reamer to remove the desired amount of bone locals were drilled for an asymmetric poly-. We then brought the knee through range of motion we did perform a lateral retinacular release with excellent patellar tracking. We thoroughly irrigated the knee with a trial components were removed a posterior capsular injection with her standard cocktail was performed the aqua Jocelin was also used to aid in hemostasis. Betadine rinse was allowed to sit and washed out components were press-fit into place. Aricept rinse was then used followed by several more rate liters of irrigation after it was allowed to sit. Joint capsule was closed with #1 Ethibond [id number]'s followed by Vicryl in the subcutaneous tissues staple in the skin arrays and checkpoints were removed prior to closure all counts were correct stab incisions were closed with a stable standard dressing in the form of Mepilex for the main incision Xeroform 4 x 4 and Tegaderm over pin site holes. Thigh-high DELMAR hose applied over top of dressing. Patient tolerated the procedure well she was directed to PACU in stable condition no intraoperative complications
[2019-10-30] MEDS: Cefazolin 1 GM/50 ML BAG IV (11:20)
[2019-10-30] MEDS: oxyCODONE 5 MG Tablet PO (12:41)
--- NOTE | 2019-10-30 12:42 | SUR.PHASEII ---
pt. resting in bed rates pain level 4-5 pt. medicated.
--- NOTE | 2019-10-30 15:21 | SUR.PHASEII ---
Dr. Randall notified of blood pressure. Pt. eating and drinking some. Pt. denied any dizziness with up walking with physical therapy. Iv running. will continue to monitor.
--- NOTE | 2019-10-30 15:39 | SUR.PHASEII ---
Dr. Ford notified of blood presuure, order obtained for 500c bolus which was started.
[2019-12-10 08:10] VITALS: BMI 36.1
== END ==
LOC: SDC 10-30 05:44 → AC 10-30 05:45 → SDC 09:50
PROVIDERS: Anesthesiology; Referring Provider Orthopaedic Surgery; Visit Provider Orthopaedic Surgery
PROC: 0SRC0JZ Replacement of Right Knee Joint with Synthetic Substitute, Open Approach (ICD-10-PCS; CPT 27447; principal; 2019-10-30 07:00)
DX: M17.11 Unilateral primary osteoarthritis, right knee (principal); I10 Essential (primary) hypertension; E11.9 Type 2 diabetes mellitus without complications; Z88.2 Allergy status to sulfonamides; Z79.84 Long term (current) use of oral hypoglycemic drugs; Z79.899 Other long term (current) drug therapy; Z11.59 Encounter for screening for other viral diseases
CPT/HCPCS: 20680; 27447; 64447; 36415; 73560; 80048; 82962; 83735; 85025; 85610; 85730; 86850; 86900; 86901; 87081; 87635; 93005; 97162; 97166; C1776; C9803; G2023; J7120; J0702; J3490; U0003

== ENCOUNTER 2019-12-18 07:06 | Day surgery (SDC) | payer OTHER, SELFPAY ==
[2019-12-10 08:10] VITALS: BMI 36.1
[2019-12-18] VITALS (10 sets, daily range): BP systolic 110–156; BP diastolic 62–108; PULSE 76–92; RESP 16–20; TEMP 36.8–36.9; O2SAT 95–100; BMI 33.7
--- NOTE | 2019-12-18 07:14 | PCM.HP.BLA ---
History and Physical Date of Admission: 12/18/19 Intake Vital Signs 12/10/19 BMI 36.1 Intake Visit Reasons: RIGHT KNEE Allergies Sulfa (Sulfonamide Antibiotics) Allergy (Verified 10/30/19 06:02) Hives [facility] Medical History (Updated 10/30/19 @ 07:[address] aMrcus Ford DO) HTN (hypertension) (Chronic) Social History (Updated 12/10/19 @ 10:[address] Marcus Ford DO) Smoking Status: Never smoker HPI RIGHT KNEE: Details: Parts of this documentation were recorded by a scribe, this documentation accurately reflects the service provided and the decisions made by me, Dr. Marcus Ford DO 12/10/19 [id number]. ROSI SCHMITT is a 54 year old F here today for s/p Right total knee arthroplasty CT guided Robotic Assisted dos 10/30/19. Patient states that she is doing well. She is able to get to 90 degrees flexion on her own. Patient denies any pain. She continues to do formal physical therapy. She denies any pain medications. Ortho Exam Right Knee Skin/Wound: Yes healed, No erythema, No ecchymosis, Yes swelling (faint) Knee ROM: Yes ROM-Extension -20 to 0, Yes ROM-Flexion 0-140 (88) Examination: No Med jt line tenderness, No Lat jt line tenderness Stability: NML: Anterior Drawer, NML: Posterior Drawer, NML: Varus 0, NML: Varus 30 Apprehension with Lateral Translation: No Patellar Tilt Normal: No Assessment & Plan Problems 1. Orthopedic aftercare Z47.89 Plan Spoke with the patient about the benefits of a manipulation to help improve knee range of motion. Explained she would need a manipulation at this time and the risks of waiting longer for the manipulation. She should take her pain medication and heat her knee prior to working on her knee range of motion. She did not want to proceed with a manipulation at this time. Follow up in 6 weeks or sooner if pain, swelling, numbness or associated symptoms, or concerns develop. All questions answered. Patient in agreement of plan. Coding Level of Care Code Global Post Op Diagnoses Orthopedic aftercare Z47.89 I have re-examined the patient. There are no clinical changes since date of exam Procedure Criteria Procedure Type: Elective COVID Risk Discussion: The surgeon/proceduralist and patient have discussed in detail the risk of exposure to and/or potential harm posed by the COVID-19 virus with having a surgery/procedure at this time versus the risk of delaying the surgery/procedure. It is not possible to know either the risk of delaying the surgery or procedure or chance of getting an infection with perfect accuracy, but a joint decision was made between the patient and the surgeon/proceduralist to proceed at this time with the scheduled surgery/procedure as indicated on the consent form.
[2019-12-18 07:36] LABS: Bedside Glucose 132 mg/dL (70-110)
[2019-12-18] MEDS: Lactated Ringers 1,000 ML 100 ML IV (07:40)
--- NOTE | 2019-12-18 09:46 | DCINST_ITS ---
Discharge Diet: No Restrictions Call your doctor if you observe: Shortness of breath, Chest pain Additional Instructions: Weightbearing as tolerated. Encourage full knee extension and flexion immediately. Resume physical therapy immediately. Pain medication as prescribed. May shower. Call with any concerns. Allergies/Adverse Reactions: Allergies Sulfa (Sulfonamide Antibiotics) Allergy (Verified 12/18/19 07:28) Hives Medications to take at Discharge Lisinopril [Prinivil] 10 mg PO DAILY 07/15/17 magnesium 30 mg tablet 30 mg PO DAILY 04/02/19 omega-3 fatty acids 1,000 mg capsule 1,000 mg PO DAILY 04/02/19 metformin 500 mg tablet,extended release 24 hr 1,000 mg PO BID 06/29/19 pioglitazone 15 mg tablet 30 mg PO DAILY 10/08/19 Multivitamin [Multiple Vitamins] 1 ea PO DAILY 10/11/19 Acetaminophen [Tylenol Extra Strength] 1,000 mg PO Q6H PRN #100 tab 10/30/19 bimatoprost 0.01 % eye drops 1 ml OPHTHALMIC DAILY 11/12/19 handicap placard 3 mo .ROUTE ONCE #3 units 11/12/19 Brimonidine Tartrate/Timolol [Combigan 0.2%-0.5% Eye Drops] 1 ml OP BID 12/11/19 Hydrocodone Bitart/Apap 5-325 [[place] 5MG-325MG] 1 - 2 tablet PO Q4H PRN PRN 5 Days #30 tablet 12/18/19 The following prescriptions were given: Hydrocodone Bitart/Apap 5-325 [[place] 5MG-325MG] 1 - 2 tablet PO Q4H PRN PRN 5 Days #30 tablet PRN Reason: Pain Transmission Status: Sent to [facility] Primary Care Physician: Anand Rodgers [Primary Care Provider] - Test Results: Test results from this visit will be discussed in further detail at your follow- up appointment, if applicable. Please Follow Up With: Marcus Ford DO - 2 weeks
[2019-12-18] MEDS: Cefazolin 2 GM in 0.9% Normal Saline 100 ML IV (09:48)
--- NOTE | 2019-12-18 09:49 | OP.PCM_ITS ---
Report of Operation Date of Procedure: 12/18/19 Description of Surgical Findings:: Preoperative diagnosis: Arthrofibrosis right knee Postoperative diagnosis: Same Procedure: Manipulation under anesthesia Anesthesia: General EBL: None Complications: None Condition: Able to PACU Indication for procedure: This is a[ 54-year-old female] who underwent total knee arthroplasty approximately 6 weeks ago who is failed to gain her range of motion wish to undergo an elective manipulation under anesthesia to increase ra nge of motion. risk benefits and alternatives were reviewed including risk of bleeding infection nerve, artery, bone, tissue damage, blood clot need for further surgery and continued pain. Procedure: Patient was met in the preoperative holding area once again the operative extremity was identified by both patient and physician and was marked. Patient was brought back to the operating room anesthesia was started. A timeout was called into the proper patient procedure and extremity were being contemplated. The operative range of motion was [lacking 8 degrees of] extension and achieving 80 ]degrees flexion. After patient was adequately anesthetized extension manipulation was performed followed by patellar mobilization followed by gradual flexion scar tissue was palpated being released with no concerning signs for tendon rupture or fracture. Postoperative range of motion was much improved with [near full ]extension and [120] degrees of flexion.
--- NOTE | 2019-12-18 10:12 | RAD_ITS ---
STUDY: X-RAY - RIGHT KNEE REASON FOR EXAM: Female, 54 years old. POST OP PORTABLE RIGHT KNEE. RIGHT KNEE MANIPULATION. HX OF RIGHT KNEE TOTAL BEFORE. TECHNIQUE: AP and lateral view(s) of the knee. COMPARISON: Comparison is made with prior study dated 10-30-19. FINDINGS: Normal visualized distal femur. Normal visualized proximal tibia and fibula. Normal proximal tibiofibular articulation. The patient is status post total knee replacement. There is good alignment. Persistent joint effusion and soft tissue swelling. RAD/Knee 1 or 2 Views IMPRESSION: Status post total knee replacement. Persistent joint effusion and soft tissue swelling. Electronically Signed: Pako Ferro, at 14:55 EDT , Service support ,
[2019-12-18] MEDS: Ketorolac 30 MG/ML Syringe IV (10:20)
== END 2019-12-18 11:59 | disposition home or self-care (01) ==
LOC: SDC 07:07 → AC 07:08
PROVIDERS: Anesthesiology; Referring Provider Orthopaedic Surgery; Visit Provider Orthopaedic Surgery
PROC: (CPT 27570; principal; 2019-12-18 09:55)
DX: M24.661 Ankylosis, right knee (principal); I10 Essential (primary) hypertension; Z88.2 Allergy status to sulfonamides; Z96.651 Presence of right artificial knee joint; Z85.72 Personal history of non-Hodgkin lymphomas
CPT/HCPCS: 01380; 27570; 73560; 82962; 87635; G2023; J7120; J2405; U0003

== ENCOUNTER 2019-12-28 11:00 | Outpatient (RCR) | payer OTHER, SELFPAY ==
[2019-10-08 10:03] VITALS: BMI 38.4
[2019-10-30 06:03] VITALS: BMI 36.1
--- NOTE | 2019-11-01 16:32 | HP.PTEVAL ---
Patient's Visit Information ROSI SCHMITT is a 54 year old F referred to Physical Therapy by Dr. Marcus Ford DO with a diagnosis of R TKA. Date of Evaluation: 11/01/19 Physical Therapist: Caio Beecrra DPT - Visit Plan Frequency: 3x /Week Duration: 4-6 Weeks Plan: Start with ROM, isometric strengthening progressing strengthening as tolerated. May use ice for pain control. Progress gait as tolerated. - Subjective Pt. is here today for her initial evaluation with diagnosis of R TKA. DOS: 10/30/19. Pt. has ROBBI knee procedure. Pt. arrives today with standard walker, but is eda full wt. Pt. reports being home without major issues. Pt. reprots no blurred vision, no fever, no calf pain and no difficulty breathing. 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 She has a physical job where she would need to run/jog at times.Pt. is hopeful to reduce her symptoms and incrase her strength in order to get back to all off her recreational activities without limitations. - Pain R knee Pain Intensity (Out of 10): 4 Pain Intensity Range: 2, 8 - Objective POSTURE: Pt. has good posture in stance. Pt. does use AD for stability, slight increase in wt. shift to L side in stance. Pt. lacks TKE on RLE. PALPATION: PT. has redness, but not abnormal. Pt. has bandage on (to take off tomorrow), so incision not visible. Negative Homans sign. NEURO: normal achilels DTR and normal senstation. ROM: R kne 0-8-55deg in supine, after wokring on ROM. Pt. is stiff with flexion. Pt. has good hip ROM without limitations. MMT: Pt. had good quad set, unable to complete SLR with RLE., 4/5 HS strength.. Hip- flexion 4/5, ext 4/5. GAIT: Pt. ambulates with standard walker. Pt. has minimal knee flexion during swing phase, and lacks TKE during stance phase. - Goals Goal 1:: LTG: Pt. to be I with HEP. Goal Time Frame: 4-6 Weeks Goal 2:: STG: Pt. to have increased ROM of R knee to 0-0-120deg. Goal Time Frame: 2-4 Weeks Goal 3:: LTG: pt. to have increased strength of RLE by 1/2 grade of all effected musculature. Goal Time Frame: 4-6 Weeks Goal 4:: STG: pt. to sleep without increase in symptoms. Goal Time Frame: 2-4 Weeks Goal 5:: LTG: Pt. to ambulate without AD unlimited distances wihtout increase in symptoms. Goal Time Frame: 4-6 Weeks Goal 6:: LTG: Pt. to negotiate 1 flight of stairs with 1 HR with reciprocal pattern without increase in symptoms. Goal Time Frame: 4-6 Weeks - Rehabilitation Potential Physical Therapy Diagnosis: Pt. has signs and symptoms consistent with R TKA. DOS: 10/30/19. Pt. has marked hypombility, weakness, increased swelling and decreased stability with gait. Pt. would benefit from PT to address above limitations progressing back to all functional I. Rehabilitation Potential: Excellent - Anticipated Interventions Patient/Client Instruction: Educate patient on: Condition, Plan of Care, Risk Factors, Benefits of Fitness Program For the Purpose of:: To foster healthy habits, To improve decision making, To facilitate caregiver knowledge, To improve self management, To prevent re-injury, To improve ability to perform tasks related to life management, To improve tolerance to ADL's Therapeutic Exercise to Include: Strength training, Power training, Endurance training, Balance training, Postural training, Flexibilty training, Gait and locomotor training, Passive ROM, Active ROM For the Purpose of:: To decrease pain, To decrease swelling/inflammation, To increase ROM, To improve nutrient delivery to tissue, To increase oxygenation perfusion, To improve muscle performance and motor function, To improve ability to perform ADL's, To increase tolerance to activity/condition/position, To improve gait and locomotor functions, To decrease soft tissue restriction, To increase flexibility/ROM Cryotherapy (ice pack, ice massage): Yes Vasopneumatic device: Yes For the Purpose of:: To decrease pain, To decrease swelling/inflammation, To increase ROM Thank you for the opportunity to evaluate your patient. For Medicare and Medicare HMO plans, please review the plan of care and approve it. It will need to be FAXED BACK to us at [phone] for Medicare purposes. For Medicare only, by signing this I certify the plan of care. Please let me know if there are questions or concerns regarding this plan of care. Physician Signature: Date:
--- NOTE | 2019-11-09 15:33 | HP.PTREVAL_ITS ---
Dr. Marcus Ford, DO, It has been my pleasure to treat ROSI SCHMITT over the last 4 visits for R TKA. Please see the progress note below for an update on the physical therapy plan of care! Subjective: Pt. reports I have been working hard at bending my knee.' Pt. reports being HEP compliant. /10 pain currently. Pt. is walking with quad cane. I talked to her that i am okay with this, but I do not want her being in too much pain limiting her mobility. Pt. reports understanding. Objective/Function: Pt. did much better with her ROM today. Pt. achieve 0-0-73deg. This date. Pt. is still tight, but imrpoved ~20deg since last vist. I urged her to continue with consistent stretching at home. Pt. is to follow up with her physician next week. I talked to her about being focus on her ROM, especially with flexion at this point in time. The focus of PT at this current time is flexion ROM and pain/edema contorl. Plan Plan: Start with ROM, isometric strengthening progressing strengthening as tolerated. May use ice for pain control. Progress gait as tolerated. Goals Goal 1:: LTG: Pt. to be I with HEP. Goal Time Frame: 4-6 Weeks Goal 2:: STG: Pt. to have increased ROM of R knee to 0-0-120deg. Goal Time Frame: 2-4 Weeks Goal 3:: LTG: pt. to have increased strength of RLE by 1/2 grade of all effected musculature. Goal Time Frame: 4-6 Weeks Goal 4:: STG: pt. to sleep without increase in symptoms. Goal Time Frame: 2-4 Weeks Goal 5:: LTG: Pt. to ambulate without AD unlimited distances wihtout increase in symptoms. Goal Time Frame: 4-6 Weeks Goal 6:: LTG: Pt. to negotiate 1 flight of stairs with 1 HR with reciprocal pattern without increase in symptoms. Goal Time Frame: 4-6 Weeks Anticipated Interventions Patient/Client Instruction: Educate patient on: Condition, Plan of Care, Risk Factors, Benefits of Fitness Program For the Purpose of:: To foster healthy habits, To improve decision making, To facilitate caregiver knowledge, To improve self management, To prevent re- injury, To improve ability to perform tasks related to life management, To improve tolerance to ADL's Therapeutic Exercise to Include: Strength training, Power training, Endurance training, Balance training, Postural training, Flexibilty training, Gait and locomotor training, Passive ROM, Active ROM For the Purpose of:: To decrease pain, To decrease swelling/inflammation, To increase ROM, To improve nutrient delivery to tissue, To increase oxygenation perfusion, To improve muscle performance and motor function, To improve ability to perform ADL's, To increase tolerance to activity/condition/position, To improve gait and locomotor functions, To decrease soft tissue restriction, To increase flexibility/ROM Cryotherapy (ice pack, ice massage): Yes Vasopneumatic device: Yes For the Purpose of:: To decrease pain, To decrease swelling/inflammation, To increase ROM Please do not hesitate to contact me at [phone] by phone or if you have questions or concerns regarding this new plan of care! Sincerely, Caio Becerra DPT
--- NOTE | 2019-12-28 13:55 | HP.PTREVAL_ITS ---
Dr. Marcus Ford, DO, It has been my pleasure to treat ROSI SCHMITT over the last 21 visits for R TKA. Please see the progress note below for an update on the physical therapy plan of care! Subjective: Pt. reports I have been working really hard. Pt. got a membership to the gym to work on biking and stretching. Pt. reports it still pretty sore. pt. to follow up with physician next week. Objective/Function: ROM: R knee ROM: 0-0-95deg AROM, PROM 0-0-108deg. Pt. still has some edema and bruising at posterior calf and medial aspect of her knee. Pt. is progressing, but slowly with flexion. Pt. has joined a gym to work on biking, stretching, and strengthening independently. Pt. does has availble for a few more PT visits, but not scheduled as of now. Pt. to see physician next week. Pt. would benefit from continued stretching, both independently, but also with supervision. Pt. walks well without AD but does require frequent reminders to increase knee flexion and not circumduct. Pt. vargas descent strength, but could also be improved as well. Plan Plan: Pt. is going back to see physician next week. Pt. has availability for PT, but has not scheduled yet for PT. Pt. does have gym membership and is competing this. She is to go back to phsician to determine if further PT would be warranted to work on flexion/extension ROM. Goals Goal 1:: LTG: Pt. to be I with HEP. Goal Time Frame: 4-6 Weeks Goal Progress: Goal Met Goal 2:: STG: Pt. to have increased ROM of R knee to 0-0-120deg. Goal Time Frame: 2-4 Weeks Goal Progress: Progressing Goal 3:: LTG: pt. to have increased strength of RLE by 1/2 grade of all effected musculature. Goal Time Frame: 4-6 Weeks Goal Progress: Progressing Goal 4:: STG: pt. to sleep without increase in symptoms. Goal Time Frame: 2-4 Weeks Goal Progress: Progressing Goal 5:: LTG: Pt. to ambulate without AD unlimited distances wihtout increase in symptoms. Goal Time Frame: 4-6 Weeks Goal Progress: Progressing Goal 6:: LTG: Pt. to negotiate 1 flight of stairs with 1 HR with reciprocal pattern without increase in symptoms. Goal Time Frame: 4-6 Weeks Goal Progress: Progressing Anticipated Interventions Patient/Client Instruction: Educate patient on: Condition, Plan of Care, Risk Factors, Benefits of Fitness Program For the Purpose of:: To foster healthy habits, To improve decision making, To facilitate caregiver knowledge, To improve self management, To prevent re- injury, To improve ability to perform tasks related to life management, To improve tolerance to ADL's Therapeutic Exercise to Include: Strength training, Power training, Endurance training, Balance training, Postural training, Flexibilty training, Gait and locomotor training, Passive ROM, Active ROM For the Purpose of:: To decrease pain, To decrease swelling/inflammation, To increase ROM, To improve nutrient delivery to tissue, To increase oxygenation perfusion, To improve muscle performance and motor function, To improve ability to perform ADL's, To increase tolerance to activity/condition/position, To improve gait and locomotor functions, To decrease soft tissue restriction, To increase flexibility/ROM Cryotherapy (ice pack, ice massage): Yes Vasopneumatic device: Yes For the Purpose of:: To decrease pain, To decrease swelling/inflammation, To increase ROM Please do not hesitate to contact me at [phone] by phone or if you have questions or concerns regarding this new plan of care! Sincerely, Caio Becerra DPT
== END 2019-12-28 19:00 | disposition home or self-care (01) ==
LOC: PT 11:00
PROVIDERS: Referring Provider Orthopaedic Surgery; Visit Provider Orthopaedic Surgery
DX: Z47.1 Aftercare following joint replacement surgery (principal)
CPT/HCPCS: 97016; 97110; 97161

== ENCOUNTER → 2022-09-17 | Outpatient (CLI) | payer OTHER, SELFPAY ==
[2022-09-17 09:56] LABS: Absolute Lymphocyte Count 1.98 X10^3/uL (0.83-4.51); Absolute Neutrophil Count 6.6 X10^3/uL (2.0-7.7); Basophil# 0.05 X10^3/uL; Basophil% 0.5 % (0-1); Eosinophil# 0.24 X10^3/uL; Eosinophils% 2.6 % (0-5); Hematocrit 43.7 % (37-47); Hemoglobin 13.8 g/dL (12.0-15.0); Lymphocyte # 1.98 X10^3/ul (0.83-4.51); Lymphocyte % 21.2 % (19-41); Mean Corp Hgb Conc 31.6 g/dL (32-36); Mean Corpuscular Hgb 28.7 pg (27.0-32.0); Mean Corpuscular Volume 90.9 fL (81-99); Mean Platelet Vol. 8.5 fl (6.2-12.0); Monocyte# 0.45 X10^3/uL; Monocyte% 4.8 % (0-10); NRBC Flagged by Analyzer 0 % (0-5); Neutrophil # 6.57 X10^3/uL (2.7-7.7); Neutrophil % 70.6 % (47-70); Platelet Count 397 K/mm3 (150-450); RBC Distribution Width CV 13.1 % (11.6-14.6); RBC Distribution Width SD 43.2 fl (35.1-43.9); Red Blood Count 4.81 M/mm3 (4.2-5.4); White Blood Count 9.3 K/mm3 (4.4-11.0)
[2022-09-17 10:14] LABS: Hemoglobin A1c 6.4 % (3.8-5.6)
[2022-09-17 10:31] LABS: ALB/GLOB Ratio 0.8 RATIO (0.9-2.4); AST(SGOT) 24 U/L (15-37); Alanine Aminotransfer ALT/SGPT 31 U/L (13-56); Albumin, Serum 3.8 g/dL (3.2-5.0); Alkaline Phosphatase 100 U/L (45-117); Anion Gap 3 (5-15); BUN 17 mg/dL (7-18); BUN/Creat Ratio 17.4 RATIO (10-20); Calcium,Total 9.1 mg/dL (8.5-10.1); Chloride 110 mmol/L (98-107); Cholesterol 232 mg/dL (200); Creatinine, Serum 0.98 mg/dL (0.55-1.02); EST Glomerular Filtration Rate 62 mL/min (>60); Est Glom Filt Rate - Afr Amer 75 mL/min (>60); Globulin 4.5 g/dL (2.2-4.2); Glucose 126 mg/dL (74-106); High Density Lipoprotein 63 mg/dL; Potassium 4.2 mmol/L (3.5-5.1); Protein, Total 8.3 g/dL (6.4-8.2); Sodium Level 137 mmol/L (136-145); Triglycerides 177 mg/dL; Very Low Density Lipoprotein 35 mg/dL (5-40)
[2022-09-17 12:48] LABS: Microalbumin,Random Urine 7.7 mg/L (NO RANGE EST.)
[2022-09-20 17:07] LABS: Thyroglobulin Antibody < 1.0 IU/mL (0.0-0.9); Thyroid Peroxidase AB 12 IU/mL (0-34)
== END | disposition home or self-care (01) ==
LOC: MFPLAB 09:12
PROVIDERS: Visit Provider Family Medicine
DX: E04.1 Nontoxic single thyroid nodule (principal); E11.9 Type 2 diabetes mellitus without complications
CPT/HCPCS: 36415; 80053; 80061; 82043; 82570; 83036; 84439; 84443; 85025; 86376; 86800

== ENCOUNTER → 2022-09-23 | Outpatient (CLI) | payer OTHER, SELFPAY ==
--- NOTE | 2022-09-23 13:22 | US_ITS ---
EXAM: US SOFT TISSUES HEAD AND NECK, THYROID CLINICAL INDICATION: NODULE TECHNIQUE: Greyscale and color doppler imaging was performed of the thyroid gland. COMPARISON: No relevant prior studies available. FINDINGS: LEFT THYROID LOBE: The left lobe of the thyroid measures 4.7 x 1.5 x 1.6 cm. Cystic nodule measuring 4 x 4 by 3 mm left lobe of the thyroid. Solid nodule measuring 8 x 8 x 5 mm left lobe of the thyroid that is isoechoic, taller than wide, smoothly marginated with no echogenic foci. RIGHT THYROID LOBE: The right lobe of the thyroid measures 5.1 x 1.7 x 2.2 cm. Cystic nodule measuring 4 x 4 by 3 mm in the mid right lobe of the thyroid. Solid nodule measuring 6 x 6 x 4 mm in the mid right lobe of the thyroid that is hypoechoic, taller than wide, with smooth margin and no echogenic foci. ISTHMUS: The isthmus measures 4 mm. No thyroid nodules are present. US/Thyroid IMPRESSION: 1. Cystic nodule measuring 4 x 4 by 3 mm in the mid right lobe of the thyroid. TI-RADS points: 0. TI-RADS category: TR1. This nodule is benign and no FNA or follow-up is necessary. 2. Solid nodule measuring 6 x 6 x 4 mm in the mid right lobe of the thyroid that is hypoechoic, taller than wide, with smooth margin and no echogenic foci. TI-RADS points: 7. TI-RADS category: TR5. This nodule is highly suspicious but no FNA or follow-up is necessary given the small size of this nodule. 3. Cystic nodule measuring 4 x 4 by 3 mm left lobe of the thyroid. TI-RADS points: 0. TI-RADS category: TR1. This nodule is benign and no FNA or follow-up is necessary. 4. Solid nodule measuring 8 x 8 x 5 mm left lobe of the thyroid that is isoechoic, taller than wide, smoothly marginated with no echogenic foci. TI-RADS points: 6. TI-RADS category: TR4. This nodule is moderately suspicious but no FNA or follow-up is necessary given the small size of this nodule. Electronically Signed: Blayne Dixon MD at 0:27 EDT ,
== END | disposition home or self-care (01) ==
LOC: US 13:21
PROVIDERS: PCP Family Medicine; Referring Provider Family Medicine; Visit Provider Family Medicine
DX: E04.1 Nontoxic single thyroid nodule (principal)
CPT/HCPCS: 10021; 76536

== ENCOUNTER → 2023-02-03 | Outpatient (CLI) | payer OTHER, SELFPAY ==
[2023-02-03 12:19] LABS: Absolute Neutrophil Count 5.7 X10^3/uL (2.0-7.7); Basophil# 0.05 X10^3/uL; Basophil% 0.6 % (0-1); Eosinophil# 0.31 X10^3/uL; Eosinophils% 3.5 % (0-5); Hematocrit 41.2 % (37-47); Hemoglobin 13.3 g/dL (12.0-15.0); Lymphocyte % 26.2 % (19-41); Mean Corp Hgb Conc 32.3 g/dL (32-36); Mean Corpuscular Hgb 29.2 pg (27.0-32.0); Mean Corpuscular Volume 90.4 fL (81-99); Monocyte# 0.42 X10^3/uL; Monocyte% 4.8 % (0-10); NRBC Flagged by Analyzer 0 % (0-5); Neutrophil # 5.67 X10^3/uL (2.7-7.7); Neutrophil % 64.7 % (47-70); Platelet Count 367 K/mm3 (150-450); RBC Distribution Width CV 12.6 % (11.6-14.6); RBC Distribution Width SD 41.5 fl (35.1-43.9); Red Blood Count 4.56 M/mm3 (4.2-5.4); White Blood Count 8.8 K/mm3 (4.4-11.0)
[2023-02-03 12:32] LABS: Hemoglobin A1c 6.5 % (3.8-5.6)
[2023-02-03 12:36] LABS: ALB/GLOB Ratio 0.9 RATIO (0.9-2.4); AST(SGOT) 12 U/L (15-37); Alanine Aminotransfer ALT/SGPT 22 U/L (13-56); Albumin, Serum 3.5 g/dL (3.2-5.0); Alkaline Phosphatase 90 U/L (45-117); Anion Gap 5 (5-15); BUN 13 mg/dL (7-18); BUN/Creat Ratio 15.2 RATIO (10-20); Calcium,Total 8.6 mg/dL (8.5-10.1); Chloride 105 mmol/L (98-107); Cholesterol 213 mg/dL (200); Creatinine, Serum 0.85 mg/dL (0.55-1.02); EST Glomerular Filtration Rate 73 mL/min (>60); Est Glom Filt Rate - Afr Amer 88 mL/min (>60); Glucose 117 mg/dL (74-106); High Density Lipoprotein 60 mg/dL; Potassium 4.4 mmol/L (3.5-5.1); Protein, Total 7.5 g/dL (6.4-8.2); Sodium Level 138 mmol/L (136-145); Triglycerides 218 mg/dL; Very Low Density Lipoprotein 44 mg/dL (5-40)
== END | disposition home or self-care (01) ==
LOC: MTLAB 10:03
PROVIDERS: PCP Family Medicine; Visit Provider Family Medicine
DX: E11.9 Type 2 diabetes mellitus without complications (principal)
CPT/HCPCS: 36415; 80053; 80061; 83036; 85025